=== PATIENT | male | born 1955 | race Caucasian/White ===

== ENCOUNTER 2016-12-27 14:13 | Emergency (ER) | payer OTHER ==
[~2016-12-27] VITALS: Ht 172.7 cm; Wt 122.7 kg
[~2016-12-27 14:13] MED LIST: AMLO5TAB2 PO; HYDR-4150 PO; IPRA3AMP IH; LORA10TA7 PO; LOVA40TA PO; MESA1.2T2 PO; METF500T3 PO; METO50TA3 PO; METR500T PO; MONT10TA23 PO; MULT-1018 PO; SACC250C PO
[2016-12-27 14:22] VITALS: BP 142/93; PULSE 91; RESP 25; O2SAT 94
--- NOTE | 2016-12-27 16:26 | ED.REPORT ---
HPI-General Illness Date of Service December 27, 2016 ED Provider: Yovani Echeverria DO The patient is a 61 year old male with history of diabetes mellitus, hypertension, hyperlipidemia, congestive heart failure, asthma, and ulcerative colitis, who presents to the emergency department complaining of intermittent episodes of dizziness. He describes the dizziness and "spinning." He also notices blurred vision and balance issues. The episodes begin suddenly and only last for a few seconds. He has 5-6 episodes each day. The episodes are usually brought on when he turns his body a certain way. The patient was recently seen for this and diagnosed with vertigo. He was sent home with Meclizine, but he does not feel like this is helping. His last dose was last night. He denies numbness, weakness, chest pain or shortness of breath. Nursing Notes Stated Complaint: Dizziness Chief Complaint: General Complaint Nursing Notes Reviewed: Yes Allergies: Coded Allergies: No Known Allergies (Verified Allergy, Unknown, 10/20/14) Scheduled Amlodipine (Amlodipine) 5 Mg Tablet 5 MG PO DAILY Ipratropium/Albuterol Sulfate (Iprat-Albut 0.5-3(2.5) mg/3 mL Inhalant Soln) 3 Ml Ampul.neb 3 ML IH 00 Loratadine (Loratadine) 10 Mg Tablet 10 MG PO DAILY Lovastatin (Lovastatin) 40 Mg Tablet 40 MG PO HS Mesalamine (Lialda) 1.2 Gm Tablet 4.8 GM PO DAILY Metformin ER (Glucophage XR) 500 Mg Tab.er.24h 500 MG PO DAILYWD Metoprolol Tartrate (Metoprolol Tartrate) 50 Mg Tablet 50 MG PO BID Metronidazole (Flagyl) 500 Mg Tablet 500 MG PO TID Montelukast (Montelukast) 10 Mg Tablet 10 MG PO HS Multivitamin (Multi Vitamin Daily) 1 Each Tablet 1 EACH PO DAILY Saccharomyces Boulardii (Florastor) 250 Mg Capsule 250 MG PO BID Scheduled PRN Hydrocodone/Acetaminophen ([place] 5-325 Tablet) 1 Each Tablet 1 EACH PO BID PRN PRN For Pain General Time Seen by MD: 16:25 Chief Complaint Dizziness Hx Obtained From: Patient, Other family... Arrived By: Walk-in Sudden in Onset?: Yes Onset Occurred: More than a week ago... Symptom Duration: Intermittent Severity: Current: No pain currently Severity: Maximum: No pain Recent Healthcare: No recent hospitalization, Recent doctor visit Similar Sx Previous: Yes Past Medical History Past Medical History Arthritis Ulcerative colitis Reports: Asthma, Congestive heart failure, Diabetes mellitus, Hyperlipidemia, Hypertension Past Surgical History Hiatal hernia surgery Back surgery x4 Family History Noncontributory Smoking History Never Smoker Social History Alcohol Use: Denies alcohol use Drug Use: Denies drug use Other Social History: Good social support, Local resident Ambulatory Status Independent Review of Systems Full Review of Systems Eyes: Reports: Blurred bilateral Respiratory: Denies: Shortness of breath Cardiovascular: Denies: Chest pain Neurologic: Reports: Dizziness, Problem walking (balance issues), Spinning sensation, Vision change, Denies: Focal weakness, Numbness Complete sys rev & neg: except as marked. Physical Exam Vital Signs Vital Signs Date Time Temp Pulse Resp B/P Pulse Ox O2 Delivery O2 Flow Rate FiO2 12/27/16 14:22 37.2 91 25 142/93 94 Room Air Initial VS: Reviewed Head / Eyes: Atraumatic, Normocephalic, PERRL ENT: Mucous membranes moist, Conjunctiva normal, No scleral icterus Neck: Supple, Non-tender, Full range of motion Respiratory: Breath sounds normal, Clear to auscultation, No respiratory distress Cardiovascular: Regular rate & rhythm, Heart sounds normal, Intact distal pulses Abdomen / GI: Soft, Non-tender, No guarding, No rebound, No distention Lymphatic: No lymphadenopathy Extremities: Vascular intact, Neuro intact, No swelling, No tenderness Skin: Warm, Dry, No cyanosis Psychiatric: Mood/affect normal, Behavior normal, Normal thought content General/Constitutional: Awake, Alert, Cooperative Neurologic: Oriented X3, Speech NL, No motor deficits, No sensory deficits, Cerebellar NL, Memory NL, Gait NL No pronator drift. Strength is 5/5 to all 4 extremities. Interpretation & Diagnostics Lab Results Interpretation Result Diagram: 12/27/16 1700 12/27/16 1700 Test 12/27/16 17:00 White Blood Count 6.7th/mm3 (3.8-10.1) Red Blood Count 4.97mil/mm3 (4.40-5.80) Hemoglobin 15.3g/dL (13.8-17.2) Hematocrit 43.7% (41.0-50.0) Mean Corpuscular Volume 87.9fL (81-100) Mean Corpuscular Hemoglobin 30.8pg (27.0-35.0) Mean Corpuscular Hemoglobin Concent 35.0% (32.0-37.0) Red Cell Distribution Width 13.2% (12.3-15.4) Platelet Count 179bil/L (150-400) Neutrophils (%) (Auto) 70.6% (40-74) Lymphocytes (%) (Auto) 17.0% (14-46) Monocytes (%) (Auto) 6.9% (4-12) Eosinophils (%) (Auto) 4.8% (0-5) Basophils (%) (Auto) 0.4% (0-3) Sodium Level 141mEq/L (134-144) Potassium Level 4.0mEq/L (3.5-5.2) Chloride Level 104mEq/L (97-108) Carbon Dioxide Level 24mmol/L (18-29) Blood Urea Nitrogen 13mg/dL (6-24) Creatinine 1.03mg/dL (0.76-1.27) Estimat Glomerular Filtration Rate 79mL/min (>59) Glucose Level 95mg/dL (60-99) Calcium Level 9.2mg/dL (8.5-10.1) Hold Mitchell Top Tube Received (Received) ECG Interpretation ECG Interpretation: Sinus rhythm with a rate of 83 RAD No priors for comparison Time: 17:00 Interpreted by: ED physician CT Head Interpretation IMPRESSION: No acute abnormality is found intracranially. Cause of dizziness for weeks off and on is not identified. Dictated by: Nathan Moe M.D. on 12/27/2016 at 17:14 Study: Head CT no contrast Interpretation / Wet Read by: Interpret - Radiologist Re-Eval/Medical Decision Med Decision/Clinical Course Symptoms are very consistent with benign paroxysmal positional vertigo. For reassurance head CT and basic labs were performed given his advanced age. These are also reassuring. He has not had any significant episodes in the ER. Recommended he follow closely with his primary care doctor. Return precautions given. Source of Hx: Old records, Family Time of Eval: 16:39 Re-Evaluation/Progress Note: The patient was able to sit up and ambulate with no symptoms. Discussed option for testing. The patient and his family would like to move forward with having the testing completed. Time of Eval: 17:31 Re-Evaluation/Progress Note: Rechecked the patient. Discussed results, diagnosis, and plan for discharge. All questions were addressed. Counseled Regarding: Diagnosis, Lab results, Need for follow-up, When/why to return to ED Discharge & Departure Primary Impression: Benign paroxysmal positional vertigo Laterality: unspecified laterality Qualified Code: H81.10 - Benign paroxysmal vertigo, unspecified ear Disposition: Home Discharge Condition All VS Reviewed: Yes Condition: Stable Patient Instructions: Benign Paroxysmal Positional Vertigo (ED) Additional Instructions: Thank you for entrusting us with your care today. Your exam findings and symptoms are consistent with benign paroxysmal position vertigo. Take the meclizine as preciously prescribed for the dizziness. Followup with your regular doctor next week if your symptoms are not improving. Return to the emergency department if you develop new numbness, weakness, headache, confusion, speech changes, or any other new or concerning symptoms. Referrals: [facility] (PCP) Scribe Attestation Portions of this note were transcribed by Sofiya Stone. I, Dr. Echeverria personally performed the history, physical exam and medical decision-making; I reviewed and confirmed the accuracy of the information in the transcribed note. Signed by: Cheri Townsend, 12/27/2016 at 1800. copies to: [facility] Yovani Echeverria DO December 27, 2016 16:26 Sofiya Stone December 27, 2016 16:31
[2016-12-27 17:07] LABS: BASOPHILS % (AUTO) 0.4 % (0-3); EOSINOPHILS % (AUTO) 4.8 % (0-5); MONOCYTES % (AUTO) 6.9 % (4-12); Mean Corpuscular Hemoglobin 30.8 pg (27.0-35.0); Mean Corpuscular Volume 87.9 fL (81-100); NEUTROPHILS % (AUTO) 70.6 % (40-74); Platelet Count 179 bil/L (150-400)
--- NOTE | 2016-12-27 17:18 | DRSVH ---
PROCEDURE: CT BRAIN WITHOUT CONTRAST ([id number]) INDICATIONS: dizziness TECHNIQUE: Noncontrast 4.5 mm thick angled axial sections acquired from the foramen magnum to the vertex, with c oronal reformats. COMPARISON: [facility], CT, HEAD WITHOUT CONTRAST, 08/20/2015, 13:33. FINDINGS: Image quality: Good CSF spaces: Basal cisterns are patent. No extra-axial fluid collections. Ventricles are normal in size and shape. Brain: No midline shift. No intracranial masses or hemorrhage. Davis-white matter interface is norm al. Skull and face: Calvarium and visualized facial bones are intact, without suspicious lesions. Sinuses: Visualized sinuses and mastoids are clear. IMPRESSION: No acute abnormality is found intracranially. Cause of dizziness for weeks off and on is not identified. Dictated by: Nathan Moe M.D. on 12/27/2016 at 17:14 Approved by: Nathan Moe M.D. on 12/27/2016 at 17:16
== END 2016-12-27 17:41 | disposition home or self-care (01) ==
LOC: SED 14:13
DX: H81.10 Benign paroxysmal vertigo, unspecified ear (principal); I11.0 Hypertensive heart disease with heart failure; I50.9 Heart failure, unspecified; E11.9 Type 2 diabetes mellitus without complications; E78.5 Hyperlipidemia, unspecified; Z79.84 Long term (current) use of oral hypoglycemic drugs

== ENCOUNTER 2017-02-15 12:30 | Emergency (ER) | payer OTHER ==
[~2017-02-15] VITALS: Ht 172.7 cm; Wt 127.3 kg
[2017-02-15 12:35] VITALS: BP 151/96; PULSE 91; RESP 12; O2SAT 94
--- NOTE | 2017-02-15 12:49 | ED.REPORT ---
HPI-General Illness Date of Service Feb 15, 2017 ED Provider: Jose Andrade MD Patient is a 62 year old male with a hx of HTN, hyperlipidemia, DM, and CHF who presents to the ED complaining of vertigo intermittently over the last month. His symptoms are exacerbated by standing. Associated symptoms including ringing in both ears. He denies visual changes, blurry vision, difficulty speaking or swallowing, numbness, tingling, weakness, ear pain, or any other symptoms. He has been on 4 different medication for his symptoms (including meclizine) without relief. He has had 2 CT scans that were both negative. He has an ENT appointment in 5 days. He has been seeing a physical therapist for his symptoms. Nursing Notes Stated Complaint: VERTIGO Chief Complaint: General Complaint Nursing Notes Reviewed: Yes Allergies: Coded Allergies: No Known Allergies (Verified Allergy, Unknown, 10/20/14) Scheduled Amlodipine (Amlodipine) 5 Mg Tablet 5 MG PO DAILY Ipratropium/Albuterol Sulfate (Iprat-Albut 0.5-3(2.5) mg/3 mL Inhalant Soln) 3 Ml Ampul.neb 3 ML IH 00 Loratadine (Loratadine) 10 Mg Tablet 10 MG PO DAILY Lovastatin (Lovastatin) 40 Mg Tablet 40 MG PO HS Mesalamine (Lialda) 1.2 Gm Tablet 4.8 GM PO DAILY Metformin ER (Glucophage XR) 500 Mg Tab.er.24h 500 MG PO DAILYWD Metoprolol Tartrate (Metoprolol Tartrate) 50 Mg Tablet 50 MG PO BID Metronidazole (Flagyl) 500 Mg Tablet 500 MG PO TID Montelukast (Montelukast) 10 Mg Tablet 10 MG PO HS Multivitamin (Multi Vitamin Daily) 1 Each Tablet 1 EACH PO DAILY Saccharomyces Boulardii (Florastor) 250 Mg Capsule 250 MG PO BID Scheduled PRN Hydrocodone/Acetaminophen ([place] 5-325 Tablet) 1 Each Tablet 1 EACH PO BID PRN PRN For Pain General Time Seen by MD: 12:42 Chief Complaint Other (Vertigo ) Hx Obtained From: Patient, Spouse Sudden in Onset?: Yes Onset Occurred: More than a week ago... (1 month) Symptom Duration: Intermittent Recent Healthcare: Recent doctor visit Past Medical History Past Medical History Arthritis Ulcerative colitis Reports: Asthma, Congestive heart failure, Diabetes mellitus, Hyperlipidemia, Hypertension Past Surgical History Hiatal hernia surgery Back surgery x4 Family History Noncontributory Smoking History Former Smoker Social History Alcohol Use: Denies alcohol use Drug Use: Denies drug use Other Social History: Good social support, Local resident Ambulatory Status Cane Review of Systems +ringing in ears bilaterally - difficulty speaking or swallowing, tingling Full Review of Systems Eyes: Denies: Blurred bilateral, Eye pain bilateral Neurologic: Reports: Dizziness, Denies: Numbness, Vision change, Weakness Complete sys rev & neg: except as marked. Physical Exam Vital Signs Vital Signs Date Time Temp Pulse Resp B/P Pulse Ox O2 Delivery O2 Flow Rate FiO2 02/15/17 13:11 105 14 138/95 93 02/15/17 13:07 82 15 138/74 93 Room Air 02/15/17 12:35 36.8 91 12 151/96 94 Room Air Initial VS: Reviewed, Vital signs abnormal Skin: Warm, Dry Psychiatric: Mood/affect normal, Behavior normal, Normal thought content General/Constitutional: Awake, Alert Distress / Hydration: Positive: Distress mild Head / Eyes: Atraumatic, Normocephalic, No nystagmus ENT: Tympanic membs NL Neck: Atraumatic, Full range of motion Respiratory / Chest: Breath sounds NL, Breath sounds = bilat, No respiratory distress Cardiovascular: Heart rate NL Neurologic: Oriented X3, Speech NL DixHallpike negative Interpretation & Diagnostics Lab Results Interpretation Lab Results Interpretation: MRI BRAIN: IMPRESSION: 1. No acute intracranial disease process. 2. Mild, diffuse volume loss. 3. Minimal periventricular and subcortical white matter chronic Destin S. ischemic changes. Dictated by: Marion Dumont MD, PhD on 02/15/2017 at 13:50 Approved by: Marion Dumont MD, PhD on 02/15/2017 at 13:53 Re-Eval/Medical Decision Med Decision/Clinical Course 62-year-old male presenting with vertigo 1 month. He has had multiple workups for this and has been repeatedly diagnosed with vertigo for the past month. He has had to had CT scans which showed no acute pathology. He has had multiple lab workups that were negative. He is seeing his primary doctor for this. He is seeing a physical therapist for this which helps at times. He has tried medications including meclizine which has not helped. His vertigo is positional. He has an appointment to see ENT for this next week. He has no focal neuro deficits here. His [place]-Hallpike reproduced worsening of his vertigo. I was able to obtain an MRI here which showed no acute pathology. Suspect benign positional vertigo. He declined labs. He will follow up with his primary doctor and ENT in physical therapy. Return precautions given if any signs symptoms stroke or any other new or worsening symptoms.. Time of Eval: 13:01 Re-Evaluation/Progress Note: Discussed plan for discharge and ENT follow up. Patient understands and agrees with plan. All questions addressed at this time. Counseled Regarding: Diagnosis, Need for follow-up, When/why to return to ED Discharge & Departure Primary Impression: Vertigo Disposition: Home Discharge Condition All VS Reviewed: Yes Condition: Stable Patient Instructions: Vertigo (ED) Additional Instructions: Thank you for entrusting us with your care. Your brain MRI and examination are reassuring. We did not find a dangerous cause for your symptoms at this time. Follow up at your ENT appointment next week. Take your medications as scheduled. Return to the emergency department if you experience visual changes, worsening headache, difficulty speaking or swallowing, weakness, numbness, tingling, or any other new or worsening symptoms. Referrals: [facility] Residency [facility] (PCP) Scribe Attestation Portions of this note were transcribed by America Torres. I, Dr. Andrade personally performed the history, physical exam and medical decision-making; I reviewed and confirmed the accuracy of the information in the transcribed note. Signed by: Cheri Bonilla, 02/15/17 at 1405 copies to: [facility] Jose Andrade MD Feb 15, 2017 12:49 AMERICA TORRES Feb 15, 2017 12:57
[2017-02-15 13:07] VITALS: BP 138/74; PULSE 82; RESP 15; O2SAT 93
[2017-02-15 13:11] VITALS: BP 138/95; PULSE 105; RESP 14; O2SAT 93
--- NOTE | 2017-02-15 13:55 | DRSVH ---
PROCEDURE: MRI BRAIN WITHOUT CONTRAST ([id number]) INDICATIONS: dizziness TECHNIQUE: Non-contrast axial T1 spin echo, axial T2 fast spin echo, sagittal and axial FLAIR, coronal T2 fast s pin echo, axial gradient echo, axial diffusion and ADC through the brain. COMPARISON: None. FINDINGS: Image quality: Excellent. CSF spaces: Ventricles appear symmetric in size and shape. Basal cisterns are patent. No extra-axi al fluid collections. Brain: No intracranial bleeds or mass effects. There is cerebral volume loss for age. There are mi nimal periventricular and deep white matter chronic small vessel ischemic changes. Brainstem appears normal. Diffusion-weighted images show no acute ischemic insults. No chronic ischemic insults. No rmal intravascular flow voids are present. Skull and face: Calvarial bone marrow is normal in signal. Orbits are normal. Sinuses: Is retention cyst versus polyps are noted in the right maxillary sinus. Polyp is noted in th e left maxillary sinus. mastoids are clear. IMPRESSION: 1. No acute intracranial disease process. 2. Mild, diffuse volume loss. 3. Minimal periventricular and subcortical white matter chronic Destin S. ischemic changes. Dictated by: Marion Dumont MD, PhD on 02/15/2017 at 13:50 Approved by: Marion Dumont MD, PhD on 02/15/2017 at 13:53
== END 2017-02-15 14:13 | disposition home or self-care (01) ==
LOC: SED 12:30
DX: R42 Dizziness and giddiness (principal); H93.8X3 Other specified disorders of ear, bilateral; I11.0 Hypertensive heart disease with heart failure; E11.59 Type 2 diabetes mellitus with other circulatory complications; I50.9 Heart failure, unspecified; J45.909 Unspecified asthma, uncomplicated; E78.5 Hyperlipidemia, unspecified; K51.90 Ulcerative colitis, unspecified, without complications; Z98.890 Other specified postprocedural states; Z79.84 Long term (current) use of oral hypoglycemic drugs; Z87.891 Personal history of nicotine dependence